=== PATIENT | female | born 1995 | race Hispanic/Latino ===

== ENCOUNTER 2019-02-21 14:02 | Emergency (ER) | payer MEDICAID, OTHER ==
[2019-02-21 14:02] VITALS: BMI 18.3
[2019-02-21] MEDS ORDERED: Sodium Chloride 0.9% 1,000 ML IV STA (15:13)
--- NOTE | 2019-02-21 15:35 | ED PDOC ---
HPI: Back Time Seen by Provider: 02/21/19 15:04 Chief Complaint (Nursing): Abdominal Pain Chief Complaint (Provider): Back Pain History Per: Patient History/Exam Limitations: no limitations Additional Complaint(s): 23 years old female presents to ER with worsening bilateral back pain radiating to lower abdomen. Patient reports in Jul 2017, she was diagnosed with renal stones after extensive workup including CTs and 2 MRI. Patient had not have followed up and this delayed visit is due to lack of insurance. She reports pain is worse on the right and states it was severe that she had multiple episodes of vomiting. Patient denies dysuria, blood in urine or taking any medications. PMD: None provided Past Medical History Reviewed: Historical Data, Nursing Documentation, Vital Signs Vital Signs: Last Vital Signs Temp 97.5 F L 02/21/19 14:33 Pulse 79 02/21/19 14:33 Resp 16 02/21/19 14:33 BP 104/75 02/21/19 14:33 Pulse Ox 100 02/21/19 14:33 Primary Care Provider: Procedure,Nonphys - Medical History PMH: No Chronic Diseases - Surgical History Surgical History: No Surg Hx - Family History Family History: States: Unknown Family Hx - Immunization History Hx Tetanus Toxoid Vaccination: No Hx Influenza Vaccination: No Hx Pneumococcal Vaccination: No - Home Medications Home Medications: Ambulatory Orders Medication Instructions Recorded Hydroxyzine Pamoate [Vistaril] 25 mg PO TID PRN #20 capsule 08/20/16 Ibuprofen [Motrin] 600 mg PO Q6 PRN #28 tab 02/21/19 - Allergies Allergies/Adverse Reactions: Allergies Allergy/AdvReac Type Severity Reaction Status Date / Time cinnamon AdvReac ANAPHYLAXIS Verified 08/19/16 22:38 nut - unspecified AdvReac ANAPHYLAXIS Verified 08/19/16 22:38 Review of Systems ROS Statement: Except As Marked, All Systems Reviewed And Found Negative Gastrointestinal: Positive for: Vomiting, Abdominal Pain Genitourinary Female: Negative for: Dysuria, Hematuria Musculoskeletal: Positive for: Back Pain (bilateral) Physical Exam - Reviewed Nursing Documentation Reviewed: Yes Vital Signs Reviewed: Yes - Physical Exam Appears: Positive for: Well, No Acute Distress Head Exam: Positive for: ATRAUMATIC, NORMOCEPHALIC Skin: Positive for: Normal Color, Warm, Dry Eye Exam: Positive for: Normal appearance, EOMI, PERRL Neck: Positive for: Normal, Painless ROM, Supple Cardiovascular/Chest: Positive for: Regular Rate, Rhythm. Negative for: Murmur Respiratory: Positive for: Normal Breath Sounds. Negative for: Respiratory Distress Gastrointestinal/Abdominal: Positive for: Tenderness (mild suprapubic) Back: Positive for: Other (Bilateral flank pain) Extremity: Positive for: Normal ROM. Negative for: Pedal Edema, Swelling Neurological/Psych: Positive for: Awake, Alert, Oriented (x3) - Laboratory Results Result Diagrams: 02/21/19 15:47 02/21/19 15:47 - ECG O2 Sat by Pulse Oximetry: 100 (RA) Pulse Ox Interpretation: Normal Medical Decision Making Medical Decision Making: Time: 1512 MDM: workup for renal stones vs. pyelonephritis vs. other abdominal pathology --Basic labs with UA --IV fluids --Toradol and Zofran --Will do imaging if abnormality to labs --Reassess patient [id number] Patient's symptoms improved with IV fluid, Toradol, and Zofran. Labs were unremarkable except for blood in UA. Patient is menstruating now. Return parameters were discussed including worsened pain, fever, inability to urinate, and patient is to be given referral to urologist and discharged home with prescription for Motrin. Scribe Attestation: Documented by Malick Braden acting as a scribe for Neris Auguste MD. Provider Scribe Attestation: All medical record entries made by the Scribe were at my direction and personally dictated by me. I have reviewed the chart and agree that the record accurately reflects my personal performance of the history, physical exam, medical decision making, and the department course for this patient. I have also personally directed, reviewed, and agree with the discharge instructions and disposition. Disposition - Clinical Impression Clinical Impression: Renal colic, bilateral - Patient ED Disposition Is Patient to be Admitted: No - Disposition Disposition: Routine/Home Disposition Time: 16:56 Condition: STABLE Additional Instructions: Follow up with urologist as needed. Increase water intake. Take Motrin as needed for pain. Prescriptions: Ibuprofen [Motrin] 600 mg PO Q6 PRN #28 tab PRN Reason: Pain, Moderate (4-7) Instructions: Renal Colic (DC) Forms: [employer] (Tongan)
[2019-02-21 15:51] LABS: BASO # 0.1 K/uL (0.0-0.2); BASO % 0.9 % (0.0-2.0); EOS # 0.1 K/uL (0.0-0.7); EOS % 2.1 % (0.0-4.0); HEMOGLOBIN 11.7 g/dL (12.0-16.0); LYMPH # 2.1 K/uL (1.0-4.3); LYMPH % 32.5 % (20.0-40.0); MEAN CELL VOLUME 89.5 fl (81.0-99.0); MEAN CORPUSCULAR HEMOGLOBIN 30.5 pg (27.0-31.0); MEAN CORPUSCULAR HGB CONC 34.1 g/dL (33.0-37.0); MEAN PLATELET VOLUME 8.2 fl (7.2-11.7); MONO # 0.4 K/uL (0.0-0.8); MONO % 6.7 % (0.0-10.0); NEUT # 3.8 K/uL (1.8-7.0); NEUT % 57.8 % (50.0-75.0); NRBC % 0.1 % (0.0-0.0); RBC 3.83 Mil/uL (3.80-5.20); RED CELL DISTRIBUTION WIDTH 12.5 % (11.5-14.5); WHITE BLOOD COUNT 6.6 K/uL (4.8-10.8)
[2019-02-21 15:59] LABS: SQUAMOUS EPITHIAL 7 /hpf (0-5); URINE BACTERIA RARE (<OCC); URINE BILIRUBIN NEGATIVE (NEGATIVE); URINE BLOOD SMALL (NEGATIVE); URINE CLARITY CLOUDY (Clear); URINE COLOR YELLOW (YELLOW); URINE GLUCOSE (UA) NEG (NEGATIVE); URINE LEUKOCYTE ESTERASE NEG Leu/uL (Negative); URINE PROTEIN 100 mg/dL (NEGATIVE); URINE UROBILINOGEN 0.2-1.0 mg/dL (0.2-1.0)
[2019-02-21 16:07] LABS: ALB/GLOB RATIO 1.6 (1.0-2.1); ALBUMIN 4.5 g/dL (3.5-5.0); ALT/SGPT 22 U/L (9-52); AST/SGOT 25 U/L (14-36); BLOOD UREA NITROGEN 9 mg/dl (7-17); CALCIUM 8.9 mg/dL (8.4-10.2); GFR NON-AFRICAN AMERICAN > 60
[2019-02-21 19:14] VITALS: BP 124/70; PULSE 77; RESP 17; TEMP 98.1
[2019-02-21 22:46] VITALS: O2SAT 100
== END 2019-02-21 17:00 | disposition home or self-care (01) ==
LOC: H.ER 14:02
DX: N23 Unspecified renal colic (principal)
CPT/HCPCS: 80053; 81003; 81025; 85025; 96374; 96375; 99284; J1885; J2405; J7030